=== PATIENT | male | born 1995 ===

== ENCOUNTER 2020-08-24 07:59 | Inpatient (IN) | payer MEDICAID ==
[~2020-08-24] VITALS: Ht 182.9 cm; Wt 89.3 kg
[2020-08-24 08:56] LABS: BASOPHILS % (AUTO) 0.4 % (0.0-2.0); EOSINOPHILS % (AUTO) 0.8 % (1.0-6.0); HEMATOCRIT 52.5 % (41-53); LYMPHOCYTES # (AUTO) 1.7 K/uL (1.0-4.8); LYMPHOCYTES % (AUTO) 17.3 % (22.0-44.0); MEAN CORPUSCULAR HEMOGLOBIN 30.5 pg (26.0-34.0); MEAN CORPUSCULAR HGB CONC 34.2 G/dL (31.0-37.0); MEAN CORPUSCULAR VOLUME 89 fL (80-100); MONOCYTES # (AUTO) 0.6 K/uL (0.1-1.0); MONOCYTES % (AUTO) 6.4 % (2.0-9.0); NEUTROPHILS # (AUTO) 7.3 K/uL (1.8-7.7); NEUTROPHILS % (AUTO) 75.1 % (40.0-70.0); PLATELET COUNT (AUTO) 197 K/uL (150-450); RED BLOOD CELL COUNT(AUTO) 5.89 MIL/uL (4.50-5.90); RED CELL DISTRIBUTION WIDTH 12.7 % (11.5-14.5)
[2020-08-24 09:05] LABS: ANION GAP 8 mmol/L (8-16); CALCIUM, TOTAL 9.2 mg/dL (8.8-10.5); CARBON DIOXIDE 29 mmol/L (22-29); CHLORIDE 102 mmol/L (98-107); CREATININE 0.97 mg/dL (0.60-1.30); GLOMERULAR FILTR. RATE CALC > 60 mL/min (>60); GLUCOSE,RANDOM 98 mg/dL (70-110); POTASSIUM 3.4 mmol/L (3.5-5.1); SODIUM SERUM 139 mmol/L (136-145); UREA NITROGEN, BLOOD 13 mg/dL (7-18)
[2020-08-24 09:10] LABS: ALANINE AMINOTRANSFERASE 45 U/L (12-78); ALBUMIN 4.3 g/dL (3.4-5.0); ALKALINE PHOSPHATASE 65 U/L (46-116); ASPARTATE AMINOTRANSFERASE 27 U/L (15-37); BILIRUBIN,TOTAL 1.1 mg/dL (0.1-1.0); TOTAL PROTEIN, SERUM 8.2 g/dL (6.4-8.2)
[2020-08-24 10:10] LABS: AMPHET/METH SCREEN,URINE NEGATIVE (NEGATIVE); BARBITURATE SCREEN, URINE NEGATIVE (NEGATIVE); BENZODIAZEPINES SCREEN,URINE NEGATIVE (NEGATIVE); CANNABINOID SCREEN,URINE POSITIVE (NEGATIVE); COCAINE SCREEN,URINE NEGATIVE (NEGATIVE); METHADONE SCREEN, URINE NEGATIVE (NEGATIVE); OPIATE SCREEN,URINE NEGATIVE (NEGATIVE)
[2020-08-24 10:14] LABS: PHENCYCLIDINE SCREEN,URINE NEGATIVE (NEGATIVE)
[2020-08-24 12:00] LABS: COVID AG,FIA SOURCE NASOPHARYNGEAL
[2020-08-25] MEDS: LORazepam 2 MG TABLET PO PRN ×2 (04:00→16:39)
[2020-08-25] MEDS: ZOLPIDEM TARTRATE 10 MG TABLET PO PRN (04:00)
[2020-08-25] MEDS ORDERED: MAG HYDROX/AL HYDROX/SIMETH ES 30 ML SUSPENSION UDCUP PO PRN (07:00)
[2020-08-25] MEDS ORDERED: CloNIDine HCL 0.1 MG TABLET PO PRN (07:00)
[2020-08-25] MEDS ORDERED: DOCUSATE SODIUM 100 MG CAPSULE PO PRN (07:00)
[2020-08-25] MEDS ORDERED: ONDANSETRON HCL 4 MG TABLET PO PRN (07:00)
[2020-08-25] MEDS ORDERED: GuaiFENesin/D-METHORPHAN [SUGAR-FREE] 200-20MG/10 ML SYRUP UDCUP PO PRN (07:00)
[2020-08-25] MEDS ORDERED: LOPERAMIDE HCL 2 MG CAPSULE PO PRN (07:00)
[2020-08-25] MEDS ORDERED: MAGNESIUM HYDROXIDE SUSPENSION 30 ML UDCUP PO PRN (07:00)
[2020-08-25] MEDS ORDERED: ACETAMINOPHEN 325 MG TABLET PO PRN (07:00)
[2020-08-25] MEDS ORDERED: ALBUTEROL SULFATE HFA 90 MCG/PUFF 8 GM INHALER IH PRN (07:00)
[2020-08-25] MEDS ORDERED: PETROLATUM,WHITE 28 GM JELLY TP PRN (07:00)
[2020-08-25 07:58] LABS: CHOL/HDL RATIO 8.7 (4.2-7.3)
[2020-08-25 09:47] VITALS: BP 118/68
[2020-08-25] MEDS: RisperiDONE 2 MG TABLET PO SCH ×2 (12:05→16:38)
[2020-08-25] MEDS: NICOTINE 14 MG/24 HOUR PATCH TD PRN (12:05)
[2020-08-25 16:13] VITALS: BP 139/91
[2020-08-25] MEDS: HALOPERIDOL 5 MG TABLET PO PRN (16:39)
[2020-08-26 03:54] VITALS: BP_SYST 139; BP_SYST 152; BP_DIAS 84; BP_DIAS 85
[2020-08-26] MEDS: LORazepam 2 MG TABLET PO PRN ×3 (03:54→16:49)
[2020-08-26] MEDS: HALOPERIDOL 5 MG TABLET PO PRN ×2 (03:54→16:49)
[2020-08-26] MEDS: RisperiDONE 2 MG TABLET PO SCH ×2 (08:43→16:49)
[2020-08-26] MEDS: NICOTINE 14 MG/24 HOUR PATCH TD PRN (14:31)
[2020-08-26 17:06] VITALS: BP 130/86
[2020-08-26] MEDS: ZOLPIDEM TARTRATE 10 MG TABLET PO PRN (20:20)
[2020-08-27 03:18] VITALS: BP 136/84
[2020-08-27] MEDS: LORazepam 2 MG TABLET PO PRN ×3 (03:47→16:43)
[2020-08-27] MEDS: HALOPERIDOL 5 MG TABLET PO PRN ×2 (03:47→16:43)
[2020-08-27 08:15] VITALS: BP 112/64
[2020-08-27] MEDS: RisperiDONE 2 MG TABLET PO SCH ×2 (08:38→16:43)
[2020-08-27] MEDS: NICOTINE 14 MG/24 HOUR PATCH TD PRN (10:56)
[2020-08-27] MEDS: IBUPROFEN 400 MG TABLET PO PRN (15:06)
[2020-08-27 16:20] VITALS: BP 133/70
[2020-08-27] MEDS: ZOLPIDEM TARTRATE 10 MG TABLET PO PRN (20:57)
[2020-08-27] MEDS ORDERED: SIMVASTATIN 10 MG TABLET PO SCH (21:00)
[2020-08-28 01:18] VITALS: BP 123/77
[2020-08-28] MEDS: LORazepam 2 MG TABLET PO PRN (01:23)
[2020-08-28] MEDS: IBUPROFEN 400 MG TABLET PO PRN (01:23)
[2020-08-28 08:09] VITALS: BP 113/52
[2020-08-28] MEDS: RisperiDONE 2 MG TABLET PO SCH (09:26)
[2020-08-28] MEDS ORDERED: RISP2TAB45 PO ×2 (10:51→10:53)
[2020-08-28] MEDS ORDERED: SIMV-259 PO (11:56)
[2020-08-28] MEDS: NICOTINE 14 MG/24 HOUR PATCH TD PRN (13:11)
== END 2020-08-28 13:30 | disposition home or self-care (01) | DRG 751 ==
LOC: EMS 07:59 → 3EC 11:18 → B3A 08-25 08:38
PROVIDERS: ADMIT Psychiatry & Neurology Child & Adolescent Psychiatry; ATTEND Psychiatry & Neurology Child & Adolescent Psychiatry
DX: F29 Unspecified psychosis not due to a substance or known physiological condition (principal); E78.5 Hyperlipidemia, unspecified; E87.6 Hypokalemia; F41.9 Anxiety disorder, unspecified; F12.90 Cannabis use, unspecified, uncomplicated; Z91.19 Patient's noncompliance with other medical treatment and regimen
CPT/HCPCS: 87426; 99285; G0480